=== PATIENT | female | born 1950 | race Caucasian/White ===

== ENCOUNTER 2017-08-16 07:20 | Day surgery (SDC) | payer MEDICARE, BC ==
[~2017-08-16 07:20] MED LIST: Lactated Ringers 1,000 ML IV SCH
[2017-08-16] MEDS ORDERED: Acetaminophen/HYDROcodone 325-5 MG Tab PO PRN (07:30)
[2017-08-16] MEDS ORDERED: Clindamycin Phosphate 600 MG/4 ML SDV ONE (09:36)
[2017-08-16] MEDS ORDERED: Lidocaine 0.5% 50 ML SDV ONE (10:00)
[2017-08-16] MEDS ORDERED: Midazolam 1 MG/ML 5 ML SDV ONE (10:00)
[2017-08-16 11:12] VITALS: BP 140/96
--- NOTE | 2017-09-02 03:04 | OR ---
DATE OF OPERATION: 08/16/2017 PREOPERATIVE DIAGNOSES: 1. Left carpal tunnel syndrome. 2. Left long finger mucous cyst. POSTOPERATIVE DIAGNOSES: 1. Left carpal tunnel syndrome. 2. Left long finger mucous cyst. PROCEDURES: 1. Left carpal tunnel release. 2. Left long finger excision mucous cyst. ANESTHESIA: Story block. SURGEON: Oscar Duarte MD. EXECUTIVE DIRECTOR CONTRACT SHOP: Say Teran RN. SPECIMENS: None. DRAINS: None. ESTIMATED BLOOD LOSS: Minimal. COMPLICATIONS: None apparent. DESCRIPTION OF PROCEDURE: After informed consent was obtained, the patient was brought to the operating room where a Story block was performed uneventfully. The left upper extremity was prepped and draped sterilely. A time-out was held and antibiotics were confirmed. An incision was made in line with the radial border of the ring finger from a line starting at the Greenberg cardinal line to the volar wrist crease. We dissected sharply through the skin, subcutaneous tissue, and palmar aponeurosis done onto the transverse carpal ligament. This was released in its entirety along the radial border of hook of hamate and re-releasing it in its entirety. The distal aspect of the volar antebrachial fascia was released with tenotomies. We inspected the nerve and it was normal. We irrigated and closed with 4-0 nylon. We then made an incision longitudinally over the mucous cyst on her left long finger and then removed this along with a small segment of the dorsal capsule. We copiously irrigated and closed with 4-0 nylon. Sterile dressings were applied. The patient was brought to the recovery room in stable condition having tolerated the procedure well with no apparent complications. BILL/ELAINE /[id number]
== END 2017-08-16 12:05 | disposition home or self-care (01) ==
LOC: LB.SDS 07:20
PROVIDERS: ATTEND Orthopaedic Surgery
DX: G56.02 Carpal tunnel syndrome, left upper limb (principal); E03.9 Hypothyroidism, unspecified; J30.2 Other seasonal allergic rhinitis; J30.1 Allergic rhinitis due to pollen; Z90.49 Acquired absence of other specified parts of digestive tract; Z98.890 Other specified postprocedural states; Z96.649 Presence of unspecified artificial hip joint; Z90.6 Acquired absence of other parts of urinary tract
CPT/HCPCS: 26160; 64721; J2250; J7120; S0077

== ENCOUNTER 2019-08-24 08:30 | Day surgery (SDC) | payer MEDICARE ==
[~2019-08-24 08:30] MED LIST changes: -Lactated Ringers 1,000 ML IV SCH; +Sodium Chloride 0.9% 10 ML Syringe FLUSH PRN
[2019-08-24] MEDS: Sodium Chloride 0.9% 1,000 ML IV SCH (09:01)
[2019-08-24] MEDS ORDERED: Metoclopramide 10 MG/2 ML SDV IV PRN (09:30)
[2019-08-24] MEDS ORDERED: Propofol 1,000 MG/100 ML SDV ONE (12:45)
[2019-08-24] MEDS ORDERED: Midazolam 1 MG/ML 2 ML SDV ONE (12:45)
[2019-08-24 14:27] VITALS: BP 133/80; PULSE 79
--- NOTE | 2019-08-24 19:18 | OR ---
DATE OF OPERATION: 08/24/2019 SURGEON: Ketan Black MD PREOPERATIVE DIAGNOSIS: Screening colonoscopy. POSTOPERATIVE DIAGNOSIS: Screening colonoscopy. PROCEDURE: Colonoscopy. ANESTHESIA: MAC. ESTIMATED BLOOD LOSS: None. COMPLICATIONS: None. INDICATION FOR THE PROCEDURE: The patient is a 69-year-old female who last had a colonoscopy 9-10 years ago, was normal per patient. Denies any change in bowel habits since that time. She is here today for screening colonoscopy. DESCRIPTION OF PROCEDURE: Informed consent was obtained from the patient. The patient was taken to the operating room and placed on table in left lateral decubitus position. Monitored anesthesia care was administered. Digital rectal exam performed that was normal. Colonoscope then advanced through the anus directed toward the cecum. Cecum was reached and identified by appendiceal orifice and ileocecal valve. Colonoscope then slowly withdrawn. No masses. No polyps. No areas of ischemia or inflammation. No AV malformations identified. No diverticula noted. Colonoscope then withdrawn within the rectum which was also otherwise unremarkable and colonoscope then withdrawn. FINDINGS: Normal colonoscopy. RECOMMENDATIONS: Would recommend repeat screening colonoscopy in 10 years. JOAQUIN/ELAINE /[id number]
== END 2019-08-24 14:31 | disposition home or self-care (01) ==
LOC: LB.SDS 08:30
PROVIDERS: ATTEND Surgery
DX: Z12.11 Encounter for screening for malignant neoplasm of colon (principal)
CPT/HCPCS: G0121; J2250; J2704; J7030